=== PATIENT | female | born 1975 | race Hispanic/Latino ===

== ENCOUNTER 2018-02-02 18:44 | Emergency (ER) | payer OTHER | END 2018-02-02 22:33 | disposition home or self-care (01) | LOC: EDH 18:44 | DX: S00.83XA Contusion of other part of head, initial encounter (principal); S20.222A Contusion of left back wall of thorax, initial encounter; S20.221A Contusion of right back wall of thorax, initial encounter; M54.2 Cervicalgia; V49.59XA Passenger injured in collision with other motor vehicles in traffic accident, initial encounter; Y93.89 Activity, other specified; Y92.89 Other specified places as the place of occurrence of the external cause; Y99.8 Other external cause status | CPT/HCPCS: 70450; 70486; 72040; 72070 ==

== ENCOUNTER 2019-04-04 08:09 | Emergency (ER) | payer OTHER ==
[2019-04-04] MEDS ORDERED: LIDOCAINE HCL 2% VISCOUS 15 ML UDCUP ONE (08:35)
[2019-04-04] MEDS ORDERED: MAGNESIUM HYDROXIDE 30 ML/UDCUP ONE (08:36)
[2019-04-04 08:47] LABS: BASOPHILS % (AUTO) 0.9 % (0.0-5.0); EOSINOPHILS % (AUTO) 1.5 % (0.0-8.0); HEMATOCRIT 39.2 % (36-48); MEAN CORPUSCULAR HEMOGLOBIN 26.2 pg (27.0-33.0); MEAN CORPUSCULAR HGB CONC 32.1 g/dL (32.0-36.0); MEAN CORPUSCULAR VOLUME 81.5 fL (79-99); MONOCYTES % (AUTO) 7.8 % (3.0-13.0); NEUTROPHILS % (AUTO) 42.6 % (40.0-77.0); PLATELET COUNT (AUTO) 378 K/uL (130-400); RED BLOOD CELL COUNT(AUTO) 4.81 MIL/uL (4.00-5.50); WHITE BLOOD COUNT (AUTO) 5.5 K/uL (4.8-10.8)
[2019-04-04 08:54] LABS: CREATININE 0.7 mg/dL (0.5-1.5); POTASSIUM 4.3 mmol/L (3.5-5.1)
[2019-04-04 08:58] LABS: ALBUMIN 3.8 g/dL (3.5-5.0); BILIRUBIN,TOTAL 0.2 mg/dL (0.2-1.0); TOTAL PROTEIN, SERUM 7.6 g/dL (6.0-8.3)
[2019-04-04 09:00] LABS: APPEARANCE,URINE Clear (CLEAR); BILIRUBIN,URINE Negative (NEGATIVE); COLOR,URINE Yellow (YELLOW); GLUCOSE, URINE (UA) Negative (NEGATIVE); KETONES,URINE Negative (NEGATIVE); LEUKOCYTE ESTERASE ,URINE Negative (NEGATIVE); NITRATE,URINE Negative (NEGATIVE); OCCULT BLOOD,URINE Trace (NEGATIVE); PH,URINE 5.5 (5.0-8.0); PROTEIN,URINE Negative (NEGATIVE); UROBILINOGEN,URINE 0.2 mg/dL (0.2-1.0)
[2019-04-04 09:25] LABS: BACTERIA,URINE Rare /HPF (None Seen); RBC,URINE 0-1 /HPF (0-1); SQUAMOUS EPITHELIAL CELL,UR Rare /HPF (0-2); WBC,URINE 0-1 /HPF (0-1)
[2019-04-04 09:40] LABS: HCG,QUAL RESULT NEGATIVE (NEGATIVE)
== END 2019-04-04 11:03 | disposition home or self-care (01) ==
LOC: EDH 08:09
DX: K29.00 Acute gastritis without bleeding (principal)
CPT/HCPCS: 36415; 80053; 81001; 81025; 83690; 85025; 93005